=== PATIENT | male | born 1985 | race Caucasian/White ===

== ENCOUNTER 2018-01-20 12:46 | Emergency (ER) | payer BC, OTHER ==
[~2018-01-20] VITALS: Ht 190.5 cm; Wt 150.1 kg
--- NOTE | 2018-01-20 13:05 | PHYS DOC ---
Past History Past Medical History: No Pertinent History Past Surgical History: No Surgical History Smoking: Non-smoker Alcohol Use: None Drug Use: None Adult General Chief Complaint Chief Complaint: FOREIGNBODY EAR HPI HPI Patient is a 32 year old male who presents with complaining of spider in his left ear. Patient states he was working at his yard about 20 minutes ago and a spider went to his left ear. She complaining of pressure feeling and pain in his left ear and states he tried to remove the spider without success. Review of Systems Review of Systems Constitutional: Denies fever or chills [] Eyes: Denies change in visual acuity, redness, or eye pain [] HENT: Denies nasal congestion or sore throat, reports ear pain [] Respiratory: Denies cough or shortness of breath [] Cardiovascular: No additional information not addressed in HPI [] GI: Denies abdominal pain, nausea, vomiting, bloody stools or diarrhea [] : Denies dysuria or hematuria [] Musculoskeletal: Denies back pain or joint pain [] Integument: Denies rash or skin lesions [] Neurologic: Denies headache, focal weakness or sensory changes [] Endocrine: Denies polyuria or polydipsia [] All other systems were reviewed and found to be within normal limits, except as documented in this note. Allergies Allergies Allergies Coded Allergies Type Severity Reaction Last Updated Verified No Known Drug Allergies 01/20/18 No Physical Exam Physical Exam Constitutional: Well developed, well nourished, moderate distress, non-toxic appearance. [] HENT: Normocephalic, atraumatic, right ear exam unremarkable, left ear with foreign body in ear canal Eyes: PERRLA, EOMI, conjunctiva normal, no discharge. [] Neck: Normal range of motion, no tenderness, supple, no stridor. [] Cardiovascular: Tachycardia, no murmur [] Lungs & Thorax: Bilateral breath sounds clear to auscultation [][] Neurologic: Alert and oriented X 3, normal motor function, normal sensory function, no focal deficits noted. [] Psychologic: Affect normal, judgement normal, mood normal. [] Current Patient Data Vital Signs Vital Signs Date Time Temp Pulse Resp B/P (MAP) Pulse Ox O2 Delivery O2 Flow Rate FiO2 01/20/18 12:57 98.1 124 18 97 Room Air EKG EKG [] Radiology/Procedures Radiology/Procedures [] Course & Med Decision Making Course & Med Decision Making Evaluation of patient in ER showed 32-year-old male patient presented with foreign body sensation left ear. After flushing lidocaine in his eara large spider came out and patient felt better and his tachycardia and elevated blood pressure resolved. Dragon Disclaimer Dragon Disclaimer This electronic medical record was generated, in whole or in part, using a voice recognition dictation system. Foreign Body Removal Procedure Indication: Left ear foreign body Procedure: Patient had foreign body in left ear after examination with autoscope. Lidocaine was flushed in his ear and a large live spider walked out and patient felt better. The patient tolerated the procedure well. Complications: none Departure Departure: Impression: Primary Impression: Ear foreign body Disposition: HOME, SELF-CARE (at 1304) Condition: IMPROVED Referrals: [facility] (PCP) Patient Instructions: Ear Foreign Body ANKITA CARROLL MD Jan 20, 2018 13:05
[2018-01-20 13:15] VITALS: BP 164/98
== END 2018-01-20 13:15 | disposition home or self-care (01) ==
LOC: ER 12:46
DX: T16.2XXA Foreign body in left ear, initial encounter (principal); X58.XXXA Exposure to other specified factors, initial encounter; Y93.89 Activity, other specified; Y92.096 Garden or yard of other non-institutional residence as the place of occurrence of the external cause; Y99.8 Other external cause status
CPT/HCPCS: 99284